=== PATIENT | female | born 1940 | race Caucasian/White ===

== ENCOUNTER 2018-08-26 08:02 | Day surgery (SDC) | payer MEDICARE, OTHER ==
[~2018-08-26] VITALS: Ht 170.2 cm; Wt 77.0 kg
[2018-08-26 08:48] VITALS: BP 175/95
[2018-08-26] MEDS ORDERED: DILT240C PO (09:17)
[2018-08-26] MEDS ORDERED: ALPR0.5T10 SL (09:18)
[2018-08-26] MEDS ORDERED: GABA300C10 PO (09:19)
[2018-08-26] MEDS ORDERED: LISI40TA PO (09:19)
[2018-08-26] MEDS ORDERED: OMEP40CA6 PO (09:20)
[2018-08-26] MEDS ORDERED: WARF-36 PO (09:21)
[2018-08-26] MEDS ORDERED: PRAV40TA2 PO (09:22)
[2018-08-26] MEDS ORDERED: TIZA4CAP PO (09:22)
[2018-08-26] MEDS ORDERED: SERT100T32 PO (09:23)
[2018-08-26] MEDS ORDERED: MIDAZOLAM 1 MG/ML, 5ML ONE (10:17)
[2018-08-26] MEDS ORDERED: HEPARIN 1,000 UNITS/ML, 10ML ONE (10:18)
[2018-08-26] MEDS ORDERED: BIVALIRUDIN 250 MG ONE (10:18)
[2018-08-26] MEDS ORDERED: TICAGRELOR 90 MG TABLET ONE (10:18)
[2018-08-26] MEDS ORDERED: VERAPAMIL 2.5 MG/ML, 2ML ONE (10:18)
[2018-08-26] MEDS ORDERED: LIDOCAINE 2%, 20ML ONE (10:18)
[2018-08-26] MEDS ORDERED: FENTANYL PF 100 MCG/2ML ONE (10:18)
[2018-08-26] MEDS ORDERED: NITROGLYCERIN 5 MG/ML, 10ML ONE (10:19)
[2018-08-26] MEDS ORDERED: LIDOCAINE-MPF 1%, 5ML ONE (10:19)
[2018-08-26] MEDS ORDERED: SODIUM CHLORIDE 0.9% 1,000 ML IV SCH (11:00)
== END 2018-08-26 13:47 | disposition home or self-care (01) ==
LOC: CACL 08:02
PROVIDERS: ATTEND Internal Medicine Cardiovascular Disease
DX: I25.10 Atherosclerotic heart disease of native coronary artery without angina pectoris (principal); I77.1 Stricture of artery; I35.0 Nonrheumatic aortic (valve) stenosis; I11.0 Hypertensive heart disease with heart failure; I50.33 Acute on chronic diastolic (congestive) heart failure; E78.5 Hyperlipidemia, unspecified; G47.30 Sleep apnea, unspecified; Z79.01 Long term (current) use of anticoagulants; Z79.899 Other long term (current) drug therapy; Z86.718 Personal history of other venous thrombosis and embolism; Z82.49 Family history of ischemic heart disease and other diseases of the circulatory system
CPT/HCPCS: 93454; 99156; 99157; C1769; C1894; J1644; J2250; J3010; Q9967; J0583

== ENCOUNTER → 2018-09-01 | Outpatient (CLI) | payer MEDICARE, OTHER ==
[~2018-09-01] MED LIST: ALPR0.5T10 SL; DILT240C PO; GABA300C10 PO; LISI40TA PO; OMEP40CA6 PO; OMNIPAQUE 350 MG/ML, 150 ML BOTTLE ONE; PLEASE ENTER HEIGHT AND WEIGHT MC SCH; PRAV40TA2 PO; SERT100T32 PO; SODIUM CHLORIDE 0.9% 1,000 ML IV SCH; TIZA4CAP PO; WARF-36 PO
== END | disposition home or self-care (01) ==
LOC: RAD 12:27
PROVIDERS: ATTEND Internal Medicine Cardiovascular Disease
DX: Z01.818 Encounter for other preprocedural examination (principal); K44.9 Diaphragmatic hernia without obstruction or gangrene; I70.0 Atherosclerosis of aorta; I65.23 Occlusion and stenosis of bilateral carotid arteries; M51.36 Other intervertebral disc degeneration, lumbar region; M51.34 Other intervertebral disc degeneration, thoracic region; I35.0 Nonrheumatic aortic (valve) stenosis; M85.88 Other specified disorders of bone density and structure, other site; I11.0 Hypertensive heart disease with heart failure; I50.33 Acute on chronic diastolic (congestive) heart failure; E78.5 Hyperlipidemia, unspecified; Z90.710 Acquired absence of both cervix and uterus
CPT/HCPCS: 71275; 74174; 93880; 94060; 94726; 94729; Q9967

== ENCOUNTER 2018-09-07 07:36 | Inpatient (IN) | payer MEDICARE, OTHER ==
[~2018-09-07] VITALS: Ht 170.2 cm; Wt 78.8 kg
[~2018-09-07 07:36] MED LIST changes: -OMNIPAQUE 350 MG/ML, 150 ML BOTTLE ONE; -PLEASE ENTER HEIGHT AND WEIGHT MC SCH; -SODIUM CHLORIDE 0.9% 1,000 ML IV SCH
[2018-09-07] MEDS ORDERED: SODIUM CHLORIDE 0.9% 1,000 ML IV ONE (07:51)
[2018-09-07] MEDS ORDERED: CHLORHEXIDINE 15 ML UDC MM PRN (08:00)
[2018-09-07] MEDS ORDERED: ONDANSETRON 2MG/ML, 2ML IVPush PRN (08:00)
[2018-09-07 08:01] VITALS: BP 141/91
[2018-09-07] MEDS ORDERED: WARF2.5T32 PO (08:41)
[2018-09-07] MEDS ORDERED: MULT-697 PO (08:44)
[2018-09-07] MEDS ORDERED: ALPR1TAB2 PO (08:44)
[2018-09-07] MEDS ORDERED: ALPR0.5T6 PO (08:44)
[2018-09-07 08:59] LABS: BASOPHILS # (AUTO) 0.03 x10^3/uL (0-0.1); BASOPHILS % (AUTO) 0 % (0-1); EOSINOPHILS % (AUTO) 2 % (1-7); LYMPHOCYTES # (AUTO) 1.59 x10^3/uL (1-3.4); LYMPHOCYTES % (AUTO) 25 % (22-44); MD NO; MEAN CORPUSCULAR HEMOGLOBIN 31.7 pg (27.0-34.8); MEAN CORPUSCULAR HGB CONC 33.4 g/dL (32.4-35.8); MEAN CORPUSCULAR VOLUME 95.1 fL (80-100); MEAN PLATELET VOLUME 8.4 fL (7.4-10.4); MONOCYTES # (AUTO) 0.51 x10^3/uL (0.2-0.8); MONOCYTES % (AUTO) 8 % (2-9); NEUTROPHILS # (AUTO) 4.11 x10^3/uL (1.8-6.8); NEUTROPHILS % (AUTO) 65 % (42-75); PLATELET COUNT 257 x10^3/uL (130-400); RED BLOOD COUNT 4.18 x10^6/uL (3.82-5.3); RED CELL DISTRIBUTION WIDTH 13.1 % (9.6-15.2)
[2018-09-07] MEDS ORDERED: FENTANYL PF 250 MCG/5ML ONE (09:06)
[2018-09-07 09:09] LABS: INTERNATIONAL NORMALIZED RATIO 1.26 (0.93-1.1); PROTHROMBIN TIME 13.1 Seconds (9.6-11.5)
[2018-09-07 09:12] LABS: ALBUMIN 3.9 g/dL (3.4-5.0); ANION GAP 7 mmol/L (5-15); CHLORIDE 102 mmol/L (98-107)
[2018-09-07 09:18] LABS: ALANINE AMINOTRANSFERASE 24 U/L (12-78); ALKALINE PHOSPHATASE 95 U/L (45-117); BILIRUBIN,TOTAL 0.9 mg/dL (0.2-1.0); CREATININE 0.79 mg/dL (0.55-1.02); TOTAL PROTEIN 7.7 g/dL (6.4-8.2)
[2018-09-07] MEDS ORDERED: PROPOFOL 10 MG/ML, 20ML ONE ×2 (09:28)
[2018-09-07] MEDS ORDERED: SUCCINYLCHOLINE 20 MG/ML, 10ML ONE (09:28)
[2018-09-07] MEDS: SODIUM CHLORIDE 0.9% 1,000 ML IV SCH ×2 (10:41→18:42)
[2018-09-07] MEDS ORDERED: ROCURONIUM 10MG/ML,5ML ONE (10:53)
[2018-09-07] MEDS ORDERED: LABETALOL 5MG/ML, 20ML ONE (10:57)
[2018-09-07] MEDS ORDERED: LABETALOL 20 MG/4 ML IVPush PRN (11:00)
[2018-09-07] MEDS ORDERED: hydrALAzine 20 MG/ML, 1ML IVPush PRN (11:00)
[2018-09-07] MEDS ORDERED: DIPHENHYDRAMINE 25 MG CAPSULE PO ONE (11:00)
[2018-09-07] MEDS ORDERED: HYDROcodone/APAP 5/325 TABLET PO PRN (11:00)
[2018-09-07] MEDS: ACETAMINOPHEN 325 MG TABLET PO PRN (15:54)
[2018-09-07] MEDS ORDERED: OMEPRAZOLE 20 MG CAPSULE.DR ONE (15:57)
[2018-09-07] MEDS ORDERED: WARFARIN 5 MG TABLET PO-COUM ONE (18:00)
[2018-09-07 20:34] VITALS: BP 143/60
[2018-09-07] MEDS ORDERED: ALPRazolam 1MG TAB PO SCH (21:00)
[2018-09-07] MEDS ORDERED: PRAVASTATIN 40 MG TABLET PO SCH (21:00)
[2018-09-07] MEDS ORDERED: WARFARIN 5 MG TABLET PO-COUM SCH (21:00)
[2018-09-07] MEDS ORDERED: WARFARIN 2.5 MG TABLET PO-COUM SCH (21:00)
[2018-09-07] MEDS: LISINOPRIL 40 MG TABLET PO SCH (21:46)
[2018-09-08 04:24] VITALS: BP 140/70
[2018-09-08 04:41] LABS: INTERNATIONAL NORMALIZED RATIO 1.15 (0.93-1.1)
[2018-09-08 04:47] LABS: BASOPHILS # (AUTO) 0.03 x10^3/uL (0-0.1); BASOPHILS % (AUTO) 0 % (0-1); EOSINOPHILS # (AUTO) 0.07 x10^3/uL (0-0.4); EOSINOPHILS % (AUTO) 1 % (1-7); LYMPHOCYTES % (AUTO) 16 % (22-44); MD NO; MEAN CORPUSCULAR HEMOGLOBIN 31.9 pg (27.0-34.8); MEAN CORPUSCULAR HGB CONC 33.3 g/dL (32.4-35.8); MEAN CORPUSCULAR VOLUME 95.7 fL (80-100); MONOCYTES # (AUTO) 0.77 x10^3/uL (0.2-0.8); MONOCYTES % (AUTO) 8 % (2-9); NEUTROPHILS # (AUTO) 7.06 x10^3/uL (1.8-6.8); NEUTROPHILS % (AUTO) 75 % (42-75); PLATELET COUNT 171 x10^3/uL (130-400); RED BLOOD COUNT 3.96 x10^6/uL (3.82-5.3); RED CELL DISTRIBUTION WIDTH 13.1 % (9.6-15.2)
[2018-09-08 04:49] LABS: ANION GAP 8 mmol/L (5-15); CALCIUM 8.6 mg/dL (8.5-10.1); CHLORIDE 102 mmol/L (98-107)
[2018-09-08 04:51] LABS: CREATININE 0.79 mg/dL (0.55-1.02)
[2018-09-08] MEDS ORDERED: OMEPRAZOLE 20 MG CAPSULE.DR PO SCH (06:00)
[2018-09-08] MEDS: LISINOPRIL 40 MG TABLET PO SCH (08:10)
[2018-09-08 08:15] VITALS: BP 137/67
[2018-09-08] MEDS: ACETAMINOPHEN 325 MG TABLET PO PRN (08:51)
[2018-09-08] MEDS ORDERED: TIZANIDINE 2MG TABLET PO SCH (09:00)
[2018-09-08] MEDS ORDERED: GABAPENTIN 300 MG CAPSULE PO SCH (09:00)
[2018-09-08] MEDS ORDERED: DILTIAZEM 240 MG CAP.ER.24H PO SCH (09:00)
[2018-09-08] MEDS ORDERED: SERTRALINE 100MG TABLET PO SCH (09:00)
[2018-09-08] MEDS ORDERED: WARFARIN 7.5 MG TABLET PO-COUM ONE (18:00)
== END 2018-09-08 13:15 | disposition home or self-care (01) | DRG 266 ==
LOC: ORIP 07:36 → CSU 10:18 → DCLOUNGE 09-08 13:04
PROVIDERS: ADMIT Internal Medicine Cardiovascular Disease; ATTEND Internal Medicine Cardiovascular Disease
PROC: 02RF38Z Replacement of Aortic Valve with Zooplastic Tissue, Percutaneous Approach (ICD-10-PCS; principal; 2018-09-07)
PROC: B246ZZ4 Ultrasonography of Right and Left Heart, Transesophageal (ICD-10-PCS; 2018-09-07)
PROC: 5A1223Z Performance of Cardiac Pacing, Continuous (ICD-10-PCS; 2018-09-07)
PROC: 4A133B1 Monitoring of Arterial Pressure, Peripheral, Percutaneous Approach (ICD-10-PCS; 2018-09-07)
PROC: B3101ZZ Fluoroscopy of Thoracic Aorta using Low Osmolar Contrast (ICD-10-PCS; 2018-09-07)
PROC: 05HM33Z Insertion of Infusion Device into Right Internal Jugular Vein, Percutaneous Approach (ICD-10-PCS; 2018-09-07)
PROC: B543ZZA Ultrasonography of Right Jugular Veins, Guidance (ICD-10-PCS; 2018-09-07)
DX: I35.0 Nonrheumatic aortic (valve) stenosis (principal); Z00.6 Encounter for examination for normal comparison and control in clinical research program; I50.33 Acute on chronic diastolic (congestive) heart failure; I11.0 Hypertensive heart disease with heart failure; E78.5 Hyperlipidemia, unspecified; Z86.718 Personal history of other venous thrombosis and embolism
CPT/HCPCS: 33361; 36415; 80048; 80053; 83880; 85025; 85347; 85610; 85730; 86850; 86900; 86923; 87081; 93005; 93308; 93312; 93321; 93325; 93355; C1760; C1769; C1894; G0378; J2704; J3010; J0330; J3490; J7030; Q0163; Q9967

== ENCOUNTER 2018-10-12 09:26 | Outpatient (CLI) | payer MEDICARE, OTHER ==
[~2018-10-12 09:26] MED LIST changes: +ALPR0.5T6 PO; +ALPR1TAB2 PO; +MULT-697 PO; +WARF2.5T32 PO
== END 2018-10-12 23:59 | disposition home or self-care (01) ==
LOC: CVU 09:26
PROVIDERS: ATTEND Internal Medicine Cardiovascular Disease
DX: I08.8 Other rheumatic multiple valve diseases (principal); Z95.2 Presence of prosthetic heart valve; Z95.0 Presence of cardiac pacemaker
CPT/HCPCS: 93306

== ENCOUNTER → 2019-10-18 | Outpatient (CLI) | payer MEDICARE, OTHER ==
[~2019-10-18] MED LIST changes: -DILT240C PO; +DILT240C81 PO; +OMEP40CA42 PO; -OMEP40CA6 PO
== END | disposition home or self-care (01) ==
LOC: CFH 10:08
PROVIDERS: ATTEND Internal Medicine Cardiovascular Disease
DX: I65.29 Occlusion and stenosis of unspecified carotid artery (principal); I35.0 Nonrheumatic aortic (valve) stenosis; R06.02 Shortness of breath
CPT/HCPCS: 93306